=== PATIENT | female | born 1960 | race Caucasian/White ===

== ENCOUNTER 2022-09-14 21:16 | Inpatient (IN) | payer OTHER ==
[~2022-09-14] VITALS: Ht 157.5 cm; Wt 76.9 kg
[2022-09-14] MEDS ORDERED: QUET100T PO (22:35)
[2022-09-14] MEDS ORDERED: SERT-162 PO (22:35)
[2022-09-14] MEDS ORDERED: INSLAN SQ (22:35)
[2022-09-14] MEDS ORDERED: CHOL25TA4 PO (22:35)
[2022-09-14] MEDS ORDERED: MELA5TAB40 PO (22:35)
[2022-09-14] MEDS ORDERED: FURO20 PO (22:35)
[2022-09-14] MEDS ORDERED: CEFA2VIA3 IV (22:35)
[2022-09-14] MEDS ORDERED: QUET200T PO (22:35)
[2022-09-14] MEDS ORDERED: CLON0.1T2 PO (22:35)
[2022-09-14] MEDS ORDERED: OXYC10TA59 PO (22:35)
[2022-09-14] MEDS ORDERED: AMIT75TA55 PO (22:35)
[2022-09-14] MEDS ORDERED: OLAN10TA74 PO (22:35)
[2022-09-14] MEDS ORDERED: CLOP75TA60 PO (22:35)
[2022-09-14] MEDS ORDERED: DOCU-350 PO (22:35)
[2022-09-14] MEDS ORDERED: GABA-1181 PO (22:35)
[2022-09-14] MEDS ORDERED: METO25 PO (22:35)
[2022-09-14] MEDS ORDERED: ESCI-8 PO (22:35)
[2022-09-14] MEDS ORDERED: INSREG SQ (22:35)
[2022-09-14] MEDS ORDERED: FAMO20 PO (22:35)
[2022-09-14] MEDS ORDERED: ASCO500 PO (22:35)
[2022-09-14] MEDS ORDERED: XALA2.5OS OS (22:35)
[2022-09-14] MEDS ORDERED: ASPI-1450 PO (22:35)
[2022-09-14] MEDS ORDERED: MULT-1192 PO (22:35)
[2022-09-14] MEDS ORDERED: COLL30OI TP (22:35)
[2022-09-14 23:01] LABS: HEMATOCRIT 21.5 % (36-46); MEAN CORPUSCULAR HEMOGLOBIN 24.9 pg (26.0-34.0); MEAN CORPUSCULAR VOLUME 78 fL (80-100); RED BLOOD CELL COUNT(AUTO) 2.76 MIL/uL (4.00-5.20)
[2022-09-14 23:03] LABS: EOSINOPHILS % (AUTO) 3.7 % (1.0-6.0); LYMPHOCYTES # (AUTO) 1.6 K/uL (1.0-4.8); LYMPHOCYTES % (AUTO) 12.4 % (22.0-44.0); MEAN CORPUSCULAR HGB CONC 32.1 G/dL (31.0-37.0); MONOCYTES % (AUTO) 7.5 % (2.0-9.0); NEUTROPHILS # (AUTO) 9.6 K/uL (1.8-7.7); NEUTROPHILS % (AUTO) 75.4 % (40.0-70.0); PLATELET COUNT (AUTO) 369 K/uL (150-450); RED CELL DISTRIBUTION WIDTH 18.5 % (11.5-14.5)
[2022-09-14 23:06] LABS: HEMOGLOBIN 6.9 g/dL (12.0-16.0)
[2022-09-14 23:09] LABS: CALCIUM, TOTAL 8.4 mg/dL (8.8-10.5); CREATININE 2.75 mg/dL (0.60-1.30); POTASSIUM 4.5 mmol/L (3.5-5.1)
[2022-09-14 23:18] LABS: ALBUMIN 1.6 g/dL (3.4-5.0); BILIRUBIN,TOTAL 0.1 mg/dL (0.1-1.0); TOTAL PROTEIN, SERUM 8.3 g/dL (6.4-8.2)
[2022-09-15] MEDS ORDERED: PANTOPRAZOLE SODIUM 40 MG/VIAL IVP ONE (02:00)
[2022-09-15] MEDS ORDERED: ONDANSETRON HCL 4 MG/2 ML VIAL IVP PRN (02:00)
[2022-09-15] MEDS ORDERED: SODIUM CHLORIDE 0.9% 250 ML IV ONE (02:00)
[2022-09-15 02:01] LABS: GLUCOMETER DEV NAME(LOC) ERT.5; GLUCOSE,POINT OF CARE 212 MG/DL (70-110)
[2022-09-15] MEDS ORDERED: DEXTROSE 50%-WATER 25 GM/50 ML SYRINGE IVP PRN (02:15)
[2022-09-15] MEDS: CefTRIAXone 1 GM/DEXTROSE 50 ML IV SCH (02:58)
[2022-09-15 03:00] LABS: COVID AG,FIA SOURCE NASOPHARYNGEAL
[2022-09-15 03:12] LABS: APPEARANCE,URINE HAZY (CLEAR); BILIRUBIN,URINE NEGATIVE (NEGATIVE); GLUCOSE, URINE (UA) 70-100 mg/dL (NEGATIVE); KETONES,URINE TRACE mg/dL (NEGATIVE); LEUKOCYTE ESTERASE ,URINE TRACE (NEGATIVE); NITRATE,URINE NEGATIVE (NEGATIVE); OCCULT BLOOD,URINE SMALL (NEGATIVE); PROTEIN,URINE 300-600,SEE CONFIRM mg/dL (NEGATIVE); SPECIFIC GRAVITIY, URINE 1.021 (1.003-1.030); UROBILINOGEN,URINE <=1.0 mg/dL (<=1.0)
[2022-09-15 03:14] LABS: CREATININE,URINE RANDOM 100.1 mg/dL (30.0-125.0)
[2022-09-15 03:20] LABS: SULFOSALICYLIC ACID,URINE 2+ (Negative)
[2022-09-15 03:21] LABS: BACTERIA,URINE None Seen /HPF (None Seen); RBC,URINE 0-2 /HPF (0-2); SQUAMOUS EPITHELIAL CELL,UR Few /LPF (None Seen); WBC,URINE 0-2 /HPF (0-5)
[2022-09-15] MEDS: AZITHROMYCIN 500 MG/NS 250 ML IV SCH (03:46)
[2022-09-15 04:16] LABS: GLUCOMETER DEV NAME(LOC) ERT.5; GLUCOSE,POINT OF CARE 215 MG/DL (70-110)
[2022-09-15 04:35] VITALS: BP 113/75
[2022-09-15 04:50] VITALS: BP 104/67
[2022-09-15 05:05] VITALS: BP 103/66
[2022-09-15 05:35] VITALS: BP 128/73
[2022-09-15] MEDS: PANTOPRAZOLE SODIUM 80 MG in SODIUM CHLORIDE 0.9% 100 ML IV SCH ×2 (05:46→12:21)
[2022-09-15 06:05] VITALS: BP 132/94
[2022-09-15] MEDS: HYDROmorphone HCL 2 MG/ML SYRINGE IVP PRN ×3 (06:18→14:55)
[2022-09-15] MEDS: MULTIVITAMINS, THERAPEUTIC TABLET PO SCH (08:35)
[2022-09-15] MEDS: GABAPENTIN 300 MG CAPSULE PO SCH ×2 (08:35→21:16)
[2022-09-15] MEDS: CHOLECALCIFEROL (VIT D3) 1,000 UNITS [25 MCG] TABLET PO SCH (08:36)
[2022-09-15] MEDS: METOPROLOL TARTRATE 25 MG TABLET PO SCH ×2 (08:37→21:13)
[2022-09-15] MEDS ORDERED: FAMOTIDINE 20 MG TABLET PO SCH (09:00)
[2022-09-15] MEDS ORDERED: CLOPIDOGREL BISULFATE 75 MG TABLET PO SCH (09:00)
[2022-09-15] MEDS ORDERED: ESCITALOPRAM OXALATE 10 MG TABLET PO SCH (09:00)
[2022-09-15] MEDS ORDERED: SERTRALINE HCL 100 MG TABLET PO SCH (09:00)
[2022-09-15] MEDS ORDERED: FUROSEMIDE 20 MG TABLET PO SCH (09:00)
[2022-09-15] MEDS: DOCUSATE SODIUM 250 MG CAPSULE PO SCH (09:59)
[2022-09-15] MEDS: QUEtiapine FUMARATE 100 MG TABLET PO SCH ×2 (09:59→17:50)
[2022-09-15] MEDS: OLANZapine 10 MG TABLET PO SCH (09:59)
[2022-09-15] MEDS: ASCORBIC ACID 500 MG TABLET PO SCH (10:02)
[2022-09-15 13:51] LABS: % IRON SATURATION 27.1 % (22-44)
[2022-09-15 14:09] LABS: HEMATOCRIT 24.6 % (36-46)
[2022-09-15 14:56] LABS: INR 1.6 (0.9-1.1); PROTHROMBIN TIME 16.4 SEC (9.4-11.6)
[2022-09-15 20:18] LABS: HEMATOCRIT 24.5 % (36-46); HEMOGLOBIN 7.8 g/dL (12.0-16.0)
[2022-09-15] MEDS ORDERED: SODIUM CHLORIDE 0.9% 500 ML IV ONE (20:50)
[2022-09-15] MEDS ORDERED: INSULIN GLARGINE,HUM.REC.ANLOG 100 UNITS/ML SQ SCH (21:00)
[2022-09-15 21:15] VITALS: BP 127/72
[2022-09-15] MEDS: MELATONIN 5 MG TABLET PO SCH (21:16)
[2022-09-15] MEDS: INSULIN GLARGINE,HUM.REC.ANLOG 100 UNITS/ML SQ SCH (21:17)
[2022-09-15] MEDS: INSULIN LISPRO 100 UNITS/ML SQ PRN (21:17)
[2022-09-15] MEDS: LATANOPROST 0.005% 2.5 ML OPHTHALMIC SOLUTION OS SCH (21:52)
[2022-09-15] MEDS: QUEtiapine FUMARATE 200 MG TABLET PO SCH (21:53)
[2022-09-15] MEDS: AMITRIPTYLINE HCL 75 MG TABLET PO SCH (21:53)
[2022-09-15 22:02] LABS: GLUCOMETER DEV NAME(LOC) 5S.2B; GLUCOSE,POINT OF CARE 166 MG/DL (70-110)
[2022-09-16] MEDS: PANTOPRAZOLE SODIUM 80 MG in SODIUM CHLORIDE 0.9% 100 ML IV SCH ×2 (00:11→08:30)
[2022-09-16] MEDS: CefTRIAXone 1 GM/DEXTROSE 50 ML IV SCH (01:54)
[2022-09-16] MEDS: HYDROmorphone HCL 2 MG/ML SYRINGE IVP PRN ×2 (02:07→18:50)
[2022-09-16] MEDS ORDERED: DiphenhydrAMINE HCL 50 MG/ML VIAL IVP ONE (02:30)
[2022-09-16] MEDS: AZITHROMYCIN 500 MG/NS 250 ML IV SCH (02:42)
[2022-09-16 04:32] VITALS: BP 125/68
[2022-09-16 05:33] LABS: BASOPHILS % (AUTO) 0.5 % (0.0-2.0); EOSINOPHILS % (AUTO) 4.4 % (1.0-6.0); HEMOGLOBIN 7.7 g/dL (12.0-16.0); LYMPHOCYTES # (AUTO) 1.3 K/uL (1.0-4.8); LYMPHOCYTES % (AUTO) 9.3 % (22.0-44.0); MEAN CORPUSCULAR HEMOGLOBIN 26.6 pg (26.0-34.0); MEAN CORPUSCULAR HGB CONC 33.4 G/dL (31.0-37.0); MEAN CORPUSCULAR VOLUME 80 fL (80-100); MONOCYTES % (AUTO) 7.1 % (2.0-9.0); NEUTROPHILS # (AUTO) 11.2 K/uL (1.8-7.7); NEUTROPHILS % (AUTO) 78.7 % (40.0-70.0); PLATELET COUNT (AUTO) 303 K/uL (150-450); RED BLOOD CELL COUNT(AUTO) 2.89 MIL/uL (4.00-5.20); RED CELL DISTRIBUTION WIDTH 18.8 % (11.5-14.5)
[2022-09-16 05:42] LABS: CALCIUM, TOTAL 8.4 mg/dL (8.8-10.5); CREATININE 2.57 mg/dL (0.60-1.30); MAGNESIUM 1.7 mg/dL (1.80-2.40); POTASSIUM 4.7 mmol/L (3.5-5.1)
[2022-09-16 05:52] LABS: CREATININE,URINE RANDOM 59.5 mg/dL (30.0-125.0)
[2022-09-16] MEDS: INSULIN LISPRO 100 UNITS/ML SQ PRN ×2 (06:30→21:09)
[2022-09-16 07:11] LABS: GLUCOMETER DEV NAME(LOC) 5S.1B; GLUCOSE,POINT OF CARE 153 MG/DL (70-110)
[2022-09-16 07:31] LABS: HEMATOCRIT 23.3 % (36-46); HEMOGLOBIN 7.6 g/dL (12.0-16.0)
[2022-09-16 07:53] VITALS: BP 113/67
[2022-09-16] MEDS: MULTIVITAMINS, THERAPEUTIC TABLET PO SCH (08:42)
[2022-09-16] MEDS: DOCUSATE SODIUM 250 MG CAPSULE PO SCH (08:42)
[2022-09-16] MEDS: GABAPENTIN 300 MG CAPSULE PO SCH (08:42)
[2022-09-16] MEDS: ASCORBIC ACID 500 MG TABLET PO SCH (08:42)
[2022-09-16] MEDS: OLANZapine 10 MG TABLET PO SCH (08:43)
[2022-09-16] MEDS: ESCITALOPRAM OXALATE 10 MG TABLET PO SCH (08:43)
[2022-09-16] MEDS: QUEtiapine FUMARATE 100 MG TABLET PO SCH ×2 (09:00→18:57)
[2022-09-16] MEDS ORDERED: SODIUM CHLORIDE 0.9% 1,000 ML ONE (09:13)
[2022-09-16] MEDS ORDERED: *CLINICAL-AZTREONAM DOSING CLINICAL ONE (09:45)
[2022-09-16] MEDS ORDERED: DOXYCYCLINE HYCLATE 100 MG in DEXTROSE 5%-WATER 100 ML IV SCH (09:45)
[2022-09-16] MEDS: METOPROLOL TARTRATE 25 MG TABLET PO SCH ×2 (10:05→21:07)
[2022-09-16] MEDS: SERTRALINE HCL 100 MG TABLET PO SCH (10:06)
[2022-09-16] MEDS: CHOLECALCIFEROL (VIT D3) 1,000 UNITS [25 MCG] TABLET PO SCH (10:06)
[2022-09-16 10:21] LABS: HEMATOCRIT 24.1 % (36-46); HEMOGLOBIN 7.7 g/dL (12.0-16.0)
[2022-09-16] MEDS ORDERED: VANCOMYCIN HCL 500 MG in DEXTROSE 5%-WATER 100 ML IV ONE (10:45)
[2022-09-16 11:00] VITALS: BP 122/68
[2022-09-16] MEDS ORDERED: VANCOMYCIN HCL 750 MG in DEXTROSE 5%-WATER 250 ML IV ONE (11:00)
[2022-09-16 11:46] LABS: GLUCOMETER DEV NAME(LOC) 5S.2B; GLUCOSE,POINT OF CARE 106 MG/DL (70-110)
[2022-09-16] MEDS: AZTREONAM 1 GM in DEXTROSE 5%-WATER 50 ML IV SCH ×2 (12:33→21:06)
[2022-09-16] MEDS ORDERED: SODIUM CHLORIDE 0.9% 1,000 ML IV ONE (13:00)
[2022-09-16 16:24] LABS: HEMATOCRIT 25.8 % (36-46); HEMOGLOBIN 8.2 g/dL (12.0-16.0)
[2022-09-16 16:56] LABS: GLUCOMETER DEV NAME(LOC) 5S.1B; GLUCOSE,POINT OF CARE 112 MG/DL (70-110)
[2022-09-16 17:25] VITALS: BP 139/54
[2022-09-16 19:23] VITALS: BP 106/53
[2022-09-16] MEDS: PANTOPRAZOLE SODIUM 40 MG/VIAL IVP SCH (21:07)
[2022-09-16] MEDS: AMITRIPTYLINE HCL 75 MG TABLET PO SCH (21:07)
[2022-09-16] MEDS: MELATONIN 5 MG TABLET PO SCH (21:08)
[2022-09-16] MEDS: QUEtiapine FUMARATE 200 MG TABLET PO SCH (21:08)
[2022-09-16] MEDS: INSULIN GLARGINE,HUM.REC.ANLOG 100 UNITS/ML SQ SCH (21:09)
[2022-09-16 22:32] LABS: HEMATOCRIT 23.6 % (36-46); HEMOGLOBIN 7.5 g/dL (12.0-16.0)
[2022-09-16] MEDS: LATANOPROST 0.005% 2.5 ML OPHTHALMIC SOLUTION OS SCH (22:46)
[2022-09-17 00:08] VITALS: BP 101/54
[2022-09-17] MEDS: AZTREONAM 1 GM in DEXTROSE 5%-WATER 50 ML IV SCH ×3 (04:00→21:55)
[2022-09-17] MEDS: HYDROmorphone HCL 2 MG/ML SYRINGE IVP PRN ×2 (04:00→09:56)
[2022-09-17 04:53] VITALS: BP 101/53
[2022-09-17 05:50] LABS: BASOPHILS % (AUTO) 0.8 % (0.0-2.0); EOSINOPHILS % (AUTO) 3.6 % (1.0-6.0); HEMATOCRIT 23.5 % (36-46); HEMOGLOBIN 7.7 g/dL (12.0-16.0); LYMPHOCYTES # (AUTO) 1.5 K/uL (1.0-4.8); LYMPHOCYTES % (AUTO) 12.4 % (22.0-44.0); MEAN CORPUSCULAR HEMOGLOBIN 26.3 pg (26.0-34.0); MEAN CORPUSCULAR HGB CONC 32.8 G/dL (31.0-37.0); MEAN CORPUSCULAR VOLUME 80 fL (80-100); MONOCYTES # (AUTO) 0.9 K/uL (0.1-1.0); MONOCYTES % (AUTO) 7.7 % (2.0-9.0); NEUTROPHILS # (AUTO) 9.1 K/uL (1.8-7.7); NEUTROPHILS % (AUTO) 75.5 % (40.0-70.0); PLATELET COUNT (AUTO) 296 K/uL (150-450); RED BLOOD CELL COUNT(AUTO) 2.92 MIL/uL (4.00-5.20); RED CELL DISTRIBUTION WIDTH 19.5 % (11.5-14.5)
[2022-09-17 06:06] LABS: GLUCOMETER DEV NAME(LOC) 5S.2B; GLUCOSE,POINT OF CARE 124 MG/DL (70-110)
[2022-09-17 06:13] LABS: ALBUMIN 1.4 g/dL (3.4-5.0); BILIRUBIN,TOTAL 0.3 mg/dL (0.1-1.0); CALCIUM, TOTAL 8.3 mg/dL (8.8-10.5); CREATININE 2.65 mg/dL (0.60-1.30); MAGNESIUM 1.9 mg/dL (1.80-2.40); PHOSPHORUS 4.4 mg/dL (2.5-4.9); POTASSIUM 4.7 mmol/L (3.5-5.1); TOTAL PROTEIN, SERUM 7.9 g/dL (6.4-8.2)
[2022-09-17 07:23] VITALS: BP 117/67
[2022-09-17] MEDS: ASCORBIC ACID 500 MG TABLET PO SCH ×2 (09:00→09:51)
[2022-09-17] MEDS: DOCUSATE SODIUM 250 MG CAPSULE PO SCH ×2 (09:00→09:49)
[2022-09-17] MEDS: CHOLECALCIFEROL (VIT D3) 1,000 UNITS [25 MCG] TABLET PO SCH ×2 (09:00→09:50)
[2022-09-17] MEDS: MULTIVITAMINS, THERAPEUTIC TABLET PO SCH ×2 (09:00→09:51)
[2022-09-17] MEDS: PANTOPRAZOLE SODIUM 40 MG/VIAL IVP SCH ×2 (09:49→21:00)
[2022-09-17] MEDS: METOPROLOL TARTRATE 25 MG TABLET PO SCH ×2 (09:50→21:00)
[2022-09-17] MEDS: ESCITALOPRAM OXALATE 10 MG TABLET PO SCH (09:50)
[2022-09-17] MEDS: OLANZapine 10 MG TABLET PO SCH (09:50)
[2022-09-17] MEDS: CLOPIDOGREL BISULFATE 75 MG TABLET PO SCH (09:50)
[2022-09-17] MEDS: SERTRALINE HCL 100 MG TABLET PO SCH (09:51)
[2022-09-17] MEDS: GABAPENTIN 300 MG CAPSULE PO SCH (09:52)
[2022-09-17] MEDS: QUEtiapine FUMARATE 100 MG TABLET PO SCH ×2 (09:56→17:00)
[2022-09-17] MEDS: VANCOMYCIN HCL 500 MG in DEXTROSE 5%-WATER 100 ML IV SCH (10:50)
[2022-09-17 12:40] LABS: HEMATOCRIT 23.3 % (36-46); HEMOGLOBIN 7.5 g/dL (12.0-16.0)
[2022-09-17 12:53] VITALS: BP 106/52
[2022-09-17 15:18] VITALS: BP 112/55
[2022-09-17] MEDS: LATANOPROST 0.005% 2.5 ML OPHTHALMIC SOLUTION OS SCH (21:00)
[2022-09-17] MEDS: AMITRIPTYLINE HCL 75 MG TABLET PO SCH (21:00)
[2022-09-17] MEDS: MELATONIN 5 MG TABLET PO SCH (21:00)
[2022-09-17] MEDS: INSULIN GLARGINE,HUM.REC.ANLOG 100 UNITS/ML SQ SCH (21:00)
[2022-09-17] MEDS: QUEtiapine FUMARATE 200 MG TABLET PO SCH (21:00)
[2022-09-18] MEDS: HYDROmorphone HCL 2 MG/ML SYRINGE IVP PRN ×4 (02:27→21:10)
[2022-09-18 05:11] VITALS: BP 125/78
[2022-09-18] MEDS: AZTREONAM 1 GM in DEXTROSE 5%-WATER 50 ML IV SCH ×3 (05:26→21:08)
[2022-09-18 06:42] LABS: EOSINOPHILS % (AUTO) 4.5 % (1.0-6.0); HEMATOCRIT 23.3 % (36-46); HEMOGLOBIN 7.5 g/dL (12.0-16.0); LYMPHOCYTES # (AUTO) 1.5 K/uL (1.0-4.8); LYMPHOCYTES % (AUTO) 16.2 % (22.0-44.0); MEAN CORPUSCULAR HEMOGLOBIN 26.2 pg (26.0-34.0); MEAN CORPUSCULAR HGB CONC 32.2 G/dL (31.0-37.0); MEAN CORPUSCULAR VOLUME 81 fL (80-100); MONOCYTES # (AUTO) 0.8 K/uL (0.1-1.0); MONOCYTES % (AUTO) 8.3 % (2.0-9.0); NEUTROPHILS # (AUTO) 6.4 K/uL (1.8-7.7); PLATELET COUNT (AUTO) 309 K/uL (150-450); RED BLOOD CELL COUNT(AUTO) 2.87 MIL/uL (4.00-5.20)
[2022-09-18] MEDS: INSULIN LISPRO 100 UNITS/ML SQ PRN (06:42)
[2022-09-18 07:03] LABS: ALBUMIN 1.5 g/dL (3.4-5.0); BILIRUBIN,TOTAL 0.2 mg/dL (0.1-1.0); CALCIUM, TOTAL 8.4 mg/dL (8.8-10.5); CREATININE 2.46 mg/dL (0.60-1.30); POTASSIUM 4.7 mmol/L (3.5-5.1)
[2022-09-18 07:05] LABS: MAGNESIUM 1.9 mg/dL (1.80-2.40); PHOSPHORUS 4.4 mg/dL (2.5-4.9)
[2022-09-18 07:47] VITALS: BP 125/64
[2022-09-18 08:11] LABS: GLUCOMETER DEV NAME(LOC) 5S.2B; GLUCOSE,POINT OF CARE 157 MG/DL (70-110)
[2022-09-18] MEDS: PANTOPRAZOLE SODIUM 40 MG/VIAL IVP SCH ×2 (08:28→21:11)
[2022-09-18] MEDS: GABAPENTIN 300 MG CAPSULE PO SCH (08:28)
[2022-09-18] MEDS: OLANZapine 10 MG TABLET PO SCH (08:29)
[2022-09-18] MEDS: DOCUSATE SODIUM 250 MG CAPSULE PO SCH (08:29)
[2022-09-18] MEDS: METOPROLOL TARTRATE 25 MG TABLET PO SCH ×2 (08:29→21:09)
[2022-09-18] MEDS: MULTIVITAMINS, THERAPEUTIC TABLET PO SCH (08:29)
[2022-09-18] MEDS: CHOLECALCIFEROL (VIT D3) 1,000 UNITS [25 MCG] TABLET PO SCH (08:29)
[2022-09-18] MEDS: SERTRALINE HCL 100 MG TABLET PO SCH (08:29)
[2022-09-18] MEDS: VANCOMYCIN HCL 500 MG in DEXTROSE 5%-WATER 100 ML IV SCH (08:30)
[2022-09-18] MEDS: ASCORBIC ACID 500 MG TABLET PO SCH (08:34)
[2022-09-18] MEDS: CLOPIDOGREL BISULFATE 75 MG TABLET PO SCH (09:00)
[2022-09-18] MEDS: ESCITALOPRAM OXALATE 10 MG TABLET PO SCH (09:00)
[2022-09-18] MEDS: QUEtiapine FUMARATE 100 MG TABLET PO SCH ×2 (10:14→17:36)
[2022-09-18] MEDS ORDERED: EPOETIN ALFA 10,000 UNITS/ML VIAL SQ ONE (11:30)
[2022-09-18 11:53] VITALS: BP 119/64
[2022-09-18 15:31] VITALS: BP 128/64
[2022-09-18 16:00] VITALS: BP 128/64
[2022-09-18 17:41] LABS: GLUCOMETER DEV NAME(LOC) 5S.2B; GLUCOSE,POINT OF CARE 147 MG/DL (70-110)
[2022-09-18 19:31] VITALS: BP 128/66
[2022-09-18] MEDS: QUEtiapine FUMARATE 200 MG TABLET PO SCH (21:09)
[2022-09-18] MEDS: MELATONIN 5 MG TABLET PO SCH (21:09)
[2022-09-18] MEDS: AMITRIPTYLINE HCL 75 MG TABLET PO SCH (21:11)
[2022-09-18] MEDS: LATANOPROST 0.005% 2.5 ML OPHTHALMIC SOLUTION OS SCH (21:12)
[2022-09-18] MEDS: INSULIN GLARGINE,HUM.REC.ANLOG 100 UNITS/ML SQ SCH (21:30)
[2022-09-19 00:50] VITALS: BP 92/57
[2022-09-19] MEDS: AZTREONAM 1 GM in DEXTROSE 5%-WATER 50 ML IV SCH ×3 (04:26→20:39)
[2022-09-19] MEDS: INSULIN LISPRO 100 UNITS/ML SQ PRN ×2 (06:48→17:34)
[2022-09-19 06:51] LABS: GLUCOMETER DEV NAME(LOC) 5S.2B; GLUCOSE,POINT OF CARE 136 MG/DL (70-110)
[2022-09-19] MEDS: ASCORBIC ACID 500 MG TABLET PO SCH (09:00)
[2022-09-19] MEDS: PANTOPRAZOLE SODIUM 40 MG/VIAL IVP SCH ×2 (09:35→20:57)
[2022-09-19] MEDS: METOPROLOL TARTRATE 25 MG TABLET PO SCH ×2 (09:36→20:54)
[2022-09-19] MEDS: GABAPENTIN 300 MG CAPSULE PO SCH (09:36)
[2022-09-19] MEDS: CHOLECALCIFEROL (VIT D3) 1,000 UNITS [25 MCG] TABLET PO SCH (09:40)
[2022-09-19] MEDS: CLOPIDOGREL BISULFATE 75 MG TABLET PO SCH (09:40)
[2022-09-19] MEDS: MULTIVITAMINS, THERAPEUTIC TABLET PO SCH (09:40)
[2022-09-19] MEDS: ESCITALOPRAM OXALATE 10 MG TABLET PO SCH (09:44)
[2022-09-19] MEDS: SERTRALINE HCL 100 MG TABLET PO SCH (09:44)
[2022-09-19] MEDS: QUEtiapine FUMARATE 100 MG TABLET PO SCH ×2 (09:44→17:13)
[2022-09-19] MEDS: DOCUSATE SODIUM 250 MG CAPSULE PO SCH (09:44)
[2022-09-19] MEDS: GuaiFENesin SR 600 MG ER TABLET PO SCH ×2 (09:44→21:08)
[2022-09-19] MEDS: OLANZapine 10 MG TABLET PO SCH (09:44)
[2022-09-19] MEDS: VANCOMYCIN HCL 500 MG in DEXTROSE 5%-WATER 100 ML IV SCH (09:45)
[2022-09-19 12:01] VITALS: BP 132/65
[2022-09-19] MEDS ORDERED: SODIUM CHLORIDE 0.9% 1,000 ML ONE (12:11)
[2022-09-19 13:34] LABS: BASOPHILS % (AUTO) 0.8 % (0.0-2.0); EOSINOPHILS % (AUTO) 3.9 % (1.0-6.0); HEMATOCRIT 25.6 % (36-46); HEMOGLOBIN 8.1 g/dL (12.0-16.0); LYMPHOCYTES # (AUTO) 1.1 K/uL (1.0-4.8); LYMPHOCYTES % (AUTO) 14.4 % (22.0-44.0); MEAN CORPUSCULAR HGB CONC 31.7 G/dL (31.0-37.0); MEAN CORPUSCULAR VOLUME 82 fL (80-100); MONOCYTES # (AUTO) 0.6 K/uL (0.1-1.0); MONOCYTES % (AUTO) 8.6 % (2.0-9.0); NEUTROPHILS # (AUTO) 5.4 K/uL (1.8-7.7); NEUTROPHILS % (AUTO) 72.3 % (40.0-70.0); PLATELET COUNT (AUTO) 320 K/uL (150-450); RED BLOOD CELL COUNT(AUTO) 3.12 MIL/uL (4.00-5.20); RED CELL DISTRIBUTION WIDTH 19.9 % (11.5-14.5)
[2022-09-19 13:51] LABS: ALBUMIN 1.6 g/dL (3.4-5.0); BILIRUBIN,TOTAL 0.2 mg/dL (0.1-1.0); CALCIUM, TOTAL 8.7 mg/dL (8.8-10.5); CREATININE 2.4 mg/dL (0.60-1.30); TOTAL PROTEIN, SERUM 8.6 g/dL (6.4-8.2); VANCOMYCIN,RANDOM 20.8 mcg/mL (25.0-50.0)
[2022-09-19 16:26] VITALS: BP 101/55
[2022-09-19] MEDS: HYDROmorphone HCL 2 MG/ML SYRINGE IVP PRN (17:14)
[2022-09-19 20:21] LABS: GLUCOMETER DEV NAME(LOC) 5S.2B; GLUCOSE,POINT OF CARE 153 MG/DL (70-110)
[2022-09-19 20:21] LABS: GLUCOMETER DEV NAME(LOC) 5S.2B; GLUCOSE,POINT OF CARE 163 MG/DL (70-110)
[2022-09-19 20:21] LABS: GLUCOMETER DEV NAME(LOC) 5S.2B; GLUCOSE,POINT OF CARE 134 MG/DL (70-110)
[2022-09-19 20:50] VITALS: BP 120/56
[2022-09-19] MEDS: AMITRIPTYLINE HCL 75 MG TABLET PO SCH (20:54)
[2022-09-19] MEDS: QUEtiapine FUMARATE 200 MG TABLET PO SCH (20:56)
[2022-09-19] MEDS: MELATONIN 5 MG TABLET PO SCH (20:56)
[2022-09-19] MEDS: LATANOPROST 0.005% 2.5 ML OPHTHALMIC SOLUTION OS SCH (20:57)
[2022-09-19] MEDS: INSULIN GLARGINE,HUM.REC.ANLOG 100 UNITS/ML SQ SCH (21:04)
[2022-09-20 00:14] VITALS: BP 112/65
[2022-09-20 04:20] VITALS: BP 120/68
[2022-09-20] MEDS: AZTREONAM 1 GM in DEXTROSE 5%-WATER 50 ML IV SCH ×3 (04:37→21:16)
[2022-09-20] MEDS: HYDROmorphone HCL 2 MG/ML SYRINGE IVP PRN (06:06)
[2022-09-20 06:29] LABS: EOSINOPHILS % (AUTO) 3.9 % (1.0-6.0); HEMATOCRIT 24.9 % (36-46); HEMOGLOBIN 8.1 g/dL (12.0-16.0); LYMPHOCYTES % (AUTO) 12.5 % (22.0-44.0); MEAN CORPUSCULAR HEMOGLOBIN 26.6 pg (26.0-34.0); MEAN CORPUSCULAR HGB CONC 32.4 G/dL (31.0-37.0); MEAN CORPUSCULAR VOLUME 82 fL (80-100); MONOCYTES # (AUTO) 0.6 K/uL (0.1-1.0); MONOCYTES % (AUTO) 8.4 % (2.0-9.0); NEUTROPHILS # (AUTO) 5.7 K/uL (1.8-7.7); NEUTROPHILS % (AUTO) 74.2 % (40.0-70.0); PLATELET COUNT (AUTO) 302 K/uL (150-450); RED BLOOD CELL COUNT(AUTO) 3.03 MIL/uL (4.00-5.20); RED CELL DISTRIBUTION WIDTH 20.3 % (11.5-14.5)
[2022-09-20 06:56] LABS: MAGNESIUM 2.1 mg/dL (1.80-2.40); PHOSPHORUS 4.4 mg/dL (2.5-4.9)
[2022-09-20 06:57] LABS: ALBUMIN 1.5 g/dL (3.4-5.0); BILIRUBIN,TOTAL 0.3 mg/dL (0.1-1.0); CALCIUM, TOTAL 8.7 mg/dL (8.8-10.5); CREATININE 2.33 mg/dL (0.60-1.30); POTASSIUM 4.9 mmol/L (3.5-5.1); TOTAL PROTEIN, SERUM 8.5 g/dL (6.4-8.2)
[2022-09-20 07:30] VITALS: BP 128/70
[2022-09-20] MEDS: VANCOMYCIN HCL 750 MG in DEXTROSE 5%-WATER 250 ML IV SCH (08:38)
[2022-09-20] MEDS: PANTOPRAZOLE SODIUM 40 MG/VIAL IVP SCH ×2 (08:39→21:13)
[2022-09-20] MEDS: METOPROLOL TARTRATE 25 MG TABLET PO SCH ×2 (08:45→21:13)
[2022-09-20] MEDS: GABAPENTIN 300 MG CAPSULE PO SCH (08:45)
[2022-09-20] MEDS: SERTRALINE HCL 100 MG TABLET PO SCH (08:45)
[2022-09-20] MEDS: OLANZapine 10 MG TABLET PO SCH (08:45)
[2022-09-20] MEDS: MULTIVITAMINS, THERAPEUTIC TABLET PO SCH (08:46)
[2022-09-20] MEDS: GuaiFENesin SR 600 MG ER TABLET PO SCH ×2 (08:46→21:13)
[2022-09-20] MEDS: QUEtiapine FUMARATE 100 MG TABLET PO SCH ×2 (08:46→17:28)
[2022-09-20] MEDS: ESCITALOPRAM OXALATE 10 MG TABLET PO SCH (08:46)
[2022-09-20] MEDS: CLOPIDOGREL BISULFATE 75 MG TABLET PO SCH (08:46)
[2022-09-20] MEDS: DOCUSATE SODIUM 250 MG CAPSULE PO SCH (08:46)
[2022-09-20] MEDS: ASCORBIC ACID 500 MG TABLET PO SCH (08:46)
[2022-09-20] MEDS: CHOLECALCIFEROL (VIT D3) 1,000 UNITS [25 MCG] TABLET PO SCH (08:46)
[2022-09-20 12:00] VITALS: BP 107/64
[2022-09-20 16:00] VITALS: BP 112/69
[2022-09-20 19:57] VITALS: BP 144/68
[2022-09-20 20:52] LABS: GLUCOMETER DEV NAME(LOC) 5S.2B; GLUCOSE,POINT OF CARE 123 MG/DL (70-110)
[2022-09-20] MEDS: INSULIN GLARGINE,HUM.REC.ANLOG 100 UNITS/ML SQ SCH (21:00)
[2022-09-20] MEDS: AMITRIPTYLINE HCL 75 MG TABLET PO SCH (21:13)
[2022-09-20] MEDS: MELATONIN 5 MG TABLET PO SCH (21:13)
[2022-09-20] MEDS: QUEtiapine FUMARATE 200 MG TABLET PO SCH (21:13)
[2022-09-20] MEDS: LATANOPROST 0.005% 2.5 ML OPHTHALMIC SOLUTION OS SCH (21:14)
[2022-09-21] MEDS: AZTREONAM 1 GM in DEXTROSE 5%-WATER 50 ML IV SCH ×3 (04:34→20:34)
[2022-09-21 05:01] VITALS: BP 132/59
[2022-09-21] MEDS: HYDROmorphone HCL 2 MG/ML SYRINGE IVP PRN ×2 (05:22→18:21)
[2022-09-21 06:26] LABS: CALCIUM, TOTAL 8.7 mg/dL (8.8-10.5); CREATININE 2.15 mg/dL (0.60-1.30); POTASSIUM 4.8 mmol/L (3.5-5.1)
[2022-09-21 08:06] VITALS: BP 152/70
[2022-09-21] MEDS: CLOPIDOGREL BISULFATE 75 MG TABLET PO SCH (08:23)
[2022-09-21] MEDS: OLANZapine 10 MG TABLET PO SCH (08:23)
[2022-09-21] MEDS: DOCUSATE SODIUM 250 MG CAPSULE PO SCH (08:23)
[2022-09-21] MEDS: ESCITALOPRAM OXALATE 10 MG TABLET PO SCH (08:23)
[2022-09-21] MEDS: GuaiFENesin SR 600 MG ER TABLET PO SCH ×2 (08:23→20:32)
[2022-09-21] MEDS: PANTOPRAZOLE SODIUM 40 MG/VIAL IVP SCH ×2 (08:23→20:32)
[2022-09-21] MEDS: SERTRALINE HCL 100 MG TABLET PO SCH (08:23)
[2022-09-21] MEDS: CHOLECALCIFEROL (VIT D3) 1,000 UNITS [25 MCG] TABLET PO SCH (08:23)
[2022-09-21] MEDS: VANCOMYCIN HCL 750 MG in DEXTROSE 5%-WATER 250 ML IV SCH (08:23)
[2022-09-21] MEDS: GABAPENTIN 300 MG CAPSULE PO SCH (08:24)
[2022-09-21] MEDS: METOPROLOL TARTRATE 25 MG TABLET PO SCH ×3 (08:24→20:51)
[2022-09-21] MEDS: MULTIVITAMINS, THERAPEUTIC TABLET PO SCH (08:24)
[2022-09-21] MEDS: QUEtiapine FUMARATE 100 MG TABLET PO SCH ×2 (08:24→16:26)
[2022-09-21] MEDS: ASCORBIC ACID 500 MG TABLET PO SCH (08:24)
[2022-09-21 11:44] VITALS: BP 113/57
[2022-09-21 12:41] LABS: GLUCOMETER DEV NAME(LOC) 5S.2B; GLUCOSE,POINT OF CARE 148 MG/DL (70-110)
[2022-09-21 15:27] VITALS: BP 100/59
[2022-09-21 17:11] LABS: GLUCOMETER DEV NAME(LOC) 5S.2B; GLUCOSE,POINT OF CARE 130 MG/DL (70-110)
[2022-09-21 17:26] LABS: GLUCOMETER DEV NAME(LOC) 5S.1B; GLUCOSE,POINT OF CARE 150 MG/DL (70-110)
[2022-09-21 20:14] VITALS: BP 132/60
[2022-09-21] MEDS: AMITRIPTYLINE HCL 75 MG TABLET PO SCH (20:31)
[2022-09-21] MEDS: QUEtiapine FUMARATE 200 MG TABLET PO SCH (20:31)
[2022-09-21] MEDS: MELATONIN 5 MG TABLET PO SCH (20:32)
[2022-09-21] MEDS: LATANOPROST 0.005% 2.5 ML OPHTHALMIC SOLUTION OS SCH (20:34)
[2022-09-21] MEDS: INSULIN GLARGINE,HUM.REC.ANLOG 100 UNITS/ML SQ SCH (20:51)
[2022-09-22] VITALS (7 sets, daily range): BP systolic 122–145; BP diastolic 54–78
[2022-09-22] MEDS: HYDROmorphone HCL 2 MG/ML SYRINGE IVP PRN ×3 (00:42→13:24)
[2022-09-22] MEDS: AZTREONAM 1 GM in DEXTROSE 5%-WATER 50 ML IV SCH ×3 (04:32→21:26)
[2022-09-22 05:26] LABS: GLUCOMETER DEV NAME(LOC) 5S.1B; GLUCOSE,POINT OF CARE 121 MG/DL (70-110)
[2022-09-22 06:36] LABS: CALCIUM, TOTAL 8.6 mg/dL (8.8-10.5); CREATININE 1.82 mg/dL (0.60-1.30); POTASSIUM 4.6 mmol/L (3.5-5.1); VANCOMYCIN,RANDOM 25.2 mcg/mL (25.0-50.0)
[2022-09-22] MEDS: PANTOPRAZOLE SODIUM 40 MG/VIAL IVP SCH ×2 (09:04→21:35)
[2022-09-22] MEDS: VANCOMYCIN HCL 750 MG in DEXTROSE 5%-WATER 250 ML IV SCH (09:04)
[2022-09-22] MEDS: ESCITALOPRAM OXALATE 10 MG TABLET PO SCH (09:04)
[2022-09-22] MEDS: DOCUSATE SODIUM 250 MG CAPSULE PO SCH (09:04)
[2022-09-22] MEDS: SERTRALINE HCL 100 MG TABLET PO SCH (09:05)
[2022-09-22] MEDS: ASCORBIC ACID 500 MG TABLET PO SCH (09:05)
[2022-09-22] MEDS: QUEtiapine FUMARATE 100 MG TABLET PO SCH ×2 (09:05→16:46)
[2022-09-22] MEDS: METOPROLOL TARTRATE 25 MG TABLET PO SCH ×2 (09:05→21:37)
[2022-09-22] MEDS: OLANZapine 10 MG TABLET PO SCH (09:05)
[2022-09-22] MEDS: MULTIVITAMINS, THERAPEUTIC TABLET PO SCH (09:05)
[2022-09-22] MEDS: CLOPIDOGREL BISULFATE 75 MG TABLET PO SCH (09:05)
[2022-09-22] MEDS: CHOLECALCIFEROL (VIT D3) 1,000 UNITS [25 MCG] TABLET PO SCH (09:05)
[2022-09-22] MEDS: GuaiFENesin SR 600 MG ER TABLET PO SCH ×2 (09:05→21:38)
[2022-09-22] MEDS: GABAPENTIN 300 MG CAPSULE PO SCH (09:05)
[2022-09-22 12:52] LABS: GLUCOMETER DEV NAME(LOC) 5S.1B; GLUCOSE,POINT OF CARE 137 MG/DL (70-110)
[2022-09-22 12:52] LABS: GLUCOMETER DEV NAME(LOC) 5S.1B; GLUCOSE,POINT OF CARE 89 MG/DL (70-110)
[2022-09-22] MEDS ORDERED: SODIUM CHLORIDE 0.9% 500 ML IV ONE (21:02)
[2022-09-22] MEDS: LATANOPROST 0.005% 2.5 ML OPHTHALMIC SOLUTION OS SCH (21:35)
[2022-09-22] MEDS: AMITRIPTYLINE HCL 75 MG TABLET PO SCH (21:36)
[2022-09-22] MEDS: MELATONIN 5 MG TABLET PO SCH (21:38)
[2022-09-22] MEDS: OxyCODONE HCL 10 MG ER TABLET PO SCH (21:39)
[2022-09-22] MEDS: QUEtiapine FUMARATE 200 MG TABLET PO SCH (21:39)
[2022-09-22] MEDS: INSULIN LISPRO 100 UNITS/ML SQ PRN (21:45)
[2022-09-22] MEDS: INSULIN GLARGINE,HUM.REC.ANLOG 100 UNITS/ML SQ SCH (21:45)
[2022-09-23] MEDS: AZTREONAM 1 GM in DEXTROSE 5%-WATER 50 ML IV SCH ×2 (04:22→11:54)
[2022-09-23 04:29] VITALS: BP 123/48
[2022-09-23 05:41] LABS: GLUCOMETER DEV NAME(LOC) 6N.2B; GLUCOSE,POINT OF CARE 147 MG/DL (70-110)
[2022-09-23 07:46] LABS: GLUCOMETER DEV NAME(LOC) 6N.2B; GLUCOSE,POINT OF CARE 129 MG/DL (70-110)
[2022-09-23] MEDS ORDERED: VANCOMYCIN HCL 500 MG in DEXTROSE 5%-WATER 100 ML IV SCH (08:00)
[2022-09-23 08:11] LABS: GLUCOMETER DEV NAME(LOC) 5S.2B; GLUCOSE,POINT OF CARE 139 MG/DL (70-110)
[2022-09-23] MEDS: SERTRALINE HCL 100 MG TABLET PO SCH (09:00)
[2022-09-23] MEDS: CLOPIDOGREL BISULFATE 75 MG TABLET PO SCH (09:00)
[2022-09-23] MEDS: ASCORBIC ACID 500 MG TABLET PO SCH (09:00)
[2022-09-23] MEDS: PANTOPRAZOLE SODIUM 40 MG/VIAL IVP SCH (09:00)
[2022-09-23] MEDS: GuaiFENesin SR 600 MG ER TABLET PO SCH (09:00)
[2022-09-23] MEDS: METOPROLOL TARTRATE 25 MG TABLET PO SCH (09:00)
[2022-09-23] MEDS: GABAPENTIN 300 MG CAPSULE PO SCH (09:00)
[2022-09-23] MEDS: MULTIVITAMINS, THERAPEUTIC TABLET PO SCH (09:00)
[2022-09-23] MEDS: DOCUSATE SODIUM 250 MG CAPSULE PO SCH (09:00)
[2022-09-23] MEDS: OxyCODONE HCL 10 MG ER TABLET PO SCH (09:00)
[2022-09-23] MEDS: CHOLECALCIFEROL (VIT D3) 1,000 UNITS [25 MCG] TABLET PO SCH (09:00)
[2022-09-23] MEDS: ESCITALOPRAM OXALATE 10 MG TABLET PO SCH (09:00)
[2022-09-23] MEDS: QUEtiapine FUMARATE 100 MG TABLET PO SCH ×2 (09:00→16:52)
[2022-09-23] MEDS: OLANZapine 10 MG TABLET PO SCH (09:00)
[2022-09-23 15:25] VITALS: BP 138/78
[2022-09-23 15:25] LABS: CALCIUM, TOTAL 8.7 mg/dL (8.8-10.5); CREATININE 1.48 mg/dL (0.60-1.30); POTASSIUM 4.2 mmol/L (3.5-5.1)
[2022-09-23 18:07] LABS: GLUCOMETER DEV NAME(LOC) 6N.2B; GLUCOSE,POINT OF CARE 122 MG/DL (70-110)
[2022-09-23 20:08] VITALS: BP 149/72
[2022-09-24] MEDS ORDERED: VANCOMYCIN HCL 750 MG in DEXTROSE 5%-WATER 250 ML IV SCH (08:00)
== END 2022-09-23 20:25 | DRG 253 ==
LOC: EMS 21:16 → AHU 09-15 10:43 → 5S 09-15 20:30 → 6S 09-22 20:10
PROVIDERS: ADMIT Internal Medicine; ATTEND Internal Medicine
PROC: 30233N1 Transfusion of Nonautologous Red Blood Cells into Peripheral Vein, Percutaneous Approach (ICD-10-PCS; principal; 2022-09-15)
PROC: 0DJ08ZZ Inspection of Upper Intestinal Tract, Via Natural or Artificial Opening Endoscopic (ICD-10-PCS; 2022-09-16)
DX: K92.2 Gastrointestinal hemorrhage, unspecified (principal); N17.0 Acute kidney failure with tubular necrosis; J18.9 Pneumonia, unspecified organism; L89.613 Pressure ulcer of right heel, stage 3; E11.22 Type 2 diabetes mellitus with diabetic chronic kidney disease; E11.40 Type 2 diabetes mellitus with diabetic neuropathy, unspecified; D50.9 Iron deficiency anemia, unspecified; D62 Acute posthemorrhagic anemia; L97.419 Non-pressure chronic ulcer of right heel and midfoot with unspecified severity; E86.0 Dehydration; Z66 Do not resuscitate; E78.00 Pure hypercholesterolemia, unspecified; F20.9 Schizophrenia, unspecified; E11.621 Type 2 diabetes mellitus with foot ulcer; E11.65 Type 2 diabetes mellitus with hyperglycemia; N18.32 Chronic kidney disease, stage 3b; I12.9 Hypertensive chronic kidney disease with stage 1 through stage 4 chronic kidney disease, or unspecified chronic kidney disease; F32.9 Major depressive disorder, single episode, unspecified; G89.4 Chronic pain syndrome; Y95 Nosocomial condition; Z79.02 Long term (current) use of antithrombotics/antiplatelets; Z79.4 Long term (current) use of insulin; Z79.82 Long term (current) use of aspirin; Z87.01 Personal history of pneumonia (recurrent); Z87.891 Personal history of nicotine dependence; Z88.0 Allergy status to penicillin; Z88.6 Allergy status to analgesic agent; Z74.01 Bed confinement status; Z79.899 Other long term (current) drug therapy; Z88.1 Allergy status to other antibiotic agents; Z88.5 Allergy status to narcotic agent; Z91.013 Allergy to seafood; Z88.8 Allergy status to other drugs, medicaments and biological substances; Z91.018 Allergy to other foods
CPT/HCPCS: 71045; 74022; 74176; 76770; 80048; 80053; 80202; 81001; 81002; 82043; 82570; 82728; 82962; 83540; 83550; 83690; 83735; 84100; 84145; 84156; 84300; 84484; 84540; 85014; 85018; 85025; 85045; 85610; 86850; 86900; 86901; 86923; 87040; 87081; 92610; 93005; 93306; 97163; 97167; 97530; 97535; 99285; C9113; G0238; G0378; J0456; J0696; J0885; J1170; J1200; J1815; J2405; J3370; J3490; J7030; J7040; J7050; J7060; P9016; Q9967; 36415-L1; 36415-TC; U0003